=== PATIENT | female | born 1970 | race African-American/Black ===

== ENCOUNTER 2017-12-12 11:00 | Emergency (ER) | payer MEDICAID ==
[~2017-12-12] VITALS: Ht 167.6 cm; Wt 60.0 kg
[2017-12-12 11:02] VITALS: BP 130/94; PULSE 102; RESP 14; TEMP 98.4; O2SAT 98
--- NOTE | 2017-12-12 11:26 | PD ---
HPI Chief Complaint: Pain: Acute or Chronic Time Seen by Provider: 11:25 Travel History International Travel<30 days: No Contact w/Intl Traveler<30days: No Traveled to known affect area: No History of Present Illness HPI 47-year-old Afro[place] female presents the emergency department status post slip and almost fall local grocery store after slipping on a wet floor. Patient did not fall completely to the floor or lose consciousness. She now is here complaining of low back pain and pain behind the right knee. PFSH Past Medical History ?: Not Social History Alcohol Use: Yes Tobacco Use: Yes Substance Use: No Allergies-Medications (Allergen,Severity, Reaction): Coded Allergies: No Known Allergies (Unverified , 12/12/17) Reported Meds & Prescriptions Reported Meds & Active Scripts Active No Active Prescriptions or Reported Medications Review of Systems Except as stated in HPI: all other systems reviewed are Neg General / Constitutional: No: Fever Eyes: No: Visual changes HENT: No: Headaches Cardiovascular: No: Chest Pain or Discomfort Respiratory: No: Shortness of Breath Gastrointestinal: No: Abdominal Pain Genitourinary: No: Dysuria Musculoskeletal: Positive: Myalgias, Arthralgias, Limited ROM, Pain Skin: No Rash Neurologic: No: Weakness Psychiatric: No: Depression Endocrine: No: Polydipsia Hematologic/Lymphatic: No: Easy Bruising Physical Exam Narrative GENERAL: Patient appears in mild to moderate distress. SKIN: Warm and dry. Normal color. Normal turgor. No signs of trauma. HEAD: Atraumatic. Normocephalic. EYES: Pupils equal and round. No scleral icterus. No injection or drainage. ENT: No nasal bleeding or discharge. Mucous membranes pink and moist. NECK: Trachea midline. No JVD. CARDIOVASCULAR: Regular rate and rhythm. RESPIRATORY: No accessory muscle use. Clear to auscultation. Breath sounds equal bilaterally. GASTROINTESTINAL: Abdomen soft, non-tender, nondistended. Hepatic and splenic margins not palpable. MUSCULOSKELETAL: Extremities without clubbing, cyanosis, or edema. No obvious deformities. There is no laxity in the right knee, however the patient complains of pain with palpation to the popliteal space. There is no obvious swelling. Patient has tenderness in the right lower lumbar spine extending into the right sciatic notch. She has fairly raise pain at 40 on the right, without contralateral straight leg raise pain. NEUROLOGICAL: Awake and alert. No obvious cranial nerve deficits. Motor grossly within normal limits. Five out of 5 muscle strength in the arms and legs. Normal speech. PSYCHIATRIC: Appropriate mood and affect; insight and judgment normal. Data Data Last Documented VS Vital Signs Date Time Temp Pulse Resp B/P (MAP) Pulse Ox O2 Delivery O2 Flow Rate FiO2 12/12/17 11:02 98.4 102 14 130/94 (106) 98 Orders Orders Knee, Complete (4vws) (12/12/17 11:29) Spine, Lumbar - Ltd (Ap & Lat) (12/12/17 11:29) Ketorolac Inj (Toradol Inj) (12/12/17 11:30) Prednisone (Deltasone) (12/12/17 11:30) [facility] Medical Decision Making Medical Screen Exam Complete: Yes Emergency Medical Condition: Yes Medical Record Reviewed: Yes Differential Diagnosis Slipped on water. Right knee sprain. Lumbar sprain. Sciatica. Narrative Course Patient is medically stable at time of exam. Patient is given Norflex 60 mg IM. Patient is given 40 mg prednisone by mouth. X-rays of the lumbar spine and right knee is ordered. X-ray of the knee shows no acute process per radiologist. 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 Patient is felt stable for discharge. Patient is placed in a right knee immobilizer for comfort. Patient is continued on ibuprofen 600 mg 3 times a day #30. Patient continued on Flexeril 10 mg up to 3 times a day #15. Patient states Mapap, milligrams 2 tabs every 6 hours when necessary #80. Patient should follow-up with local primary care physician or return to emergency department if symptoms not improve over the next week. Diagnosis Primary Impression: Acute lumbar myofascial strain Qualified Codes: S39.012A - Strain of muscle, fascia and tendon of lower back , initial encounter Additional Impression: Right knee sprain Qualified Codes: S83.91XA - Sprain of unspecified site of right knee, initial encounter Referrals: [facility] Patient Instructions: General Instructions, Knee Immobilizer (ED), Knee Pain ( ED), Low Back Strain (ED), Lower Back Exercises (ED) Additional Instructions: X-ray of the knee shows no acute process per radiologist. 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 Patient is felt stable for discharge. Patient is placed in a right knee immobilizer for comfort. Patient is continued on ibuprofen 600 mg 3 times a day #30. Patient continued on Flexeril 10 mg up to 3 times a day #15. Patient states Mapap, milligrams 2 tabs every 6 hours when necessary #80. Patient should follow-up with local primary care physician or return to emergency department if symptoms not improve over the next week. Med/Other Pt SpecificInfo: Prescription(s) given Scripts No Active Prescriptions or Reported Meds Disposition: 01 DISCHARGE HOME Condition: Stable Shane Quiles Dec 12, 2017 11:26
[2017-12-12] MEDS ORDERED: KETOROLAC TROMETHAMINE 60 MG/2 ML (IM) VIAL IM ONE (11:30)
[2017-12-12] MEDS ORDERED: predniSONE 20 MG TAB PO ONE (11:30)
--- NOTE | 2017-12-12 12:17 | RADRPT ---
EXAM DATE/TIME: 12/12/2017 11:49 [facility] COMPARISON: No previous studies available for comparison. INDICATIONS : Trauma. Fall. MEDICAL HISTORY : None. SURGICAL HISTORY : None. ENCOUNTER: Initial ACUITY: 4 - 6 days PAIN SCORE: 4/10 LOCATION: Right Posterior Knee Joint. FINDINGS: Four view examination of the right knee demonstrates no evidence of fracture or dislocation. Bony mi neralization is normal. The articular surfaces are intact. The suprapatellar soft tissues have a no rmal configuration. CONCLUSION: 1. No acute fracture or dislocation. Dario Goodman MD on December 12, 2017 at 12:15 Board Certified Radiologist. This report was verified electronically.
--- NOTE | 2017-12-12 12:54 | RADRPT ---
EXAM DATE/TIME: 12/12/2017 11:56 [facility] COMPARISON: No previous studies available for comparison. INDICATIONS : Back pain. MEDICAL HISTORY : None. SURGICAL HISTORY : None. ENCOUNTER: Initial ACUITY: 4 - 6 days PAIN SCORE: 10/10 LOCATION: Lumbar spine. FINDINGS: 3 views of the lumbar spine. Vertebral body heights are intact. Sagittal alignment is maintained. No scoliosis. No acute fracture. Disc spaces are preserved. Mild degenerative changes at L5-S1. 5.9 cm c alcified mass in the left pelvis. Soft tissues are otherwise unremarkable. CONCLUSION: 1. No acute fracture or subluxation. 2. Mild degenerative change at L5-S1. 3. 5.9 cm calcified mass in the left pelvis, likely uterine leiomyoma. This can be better characteriz ed with ultrasound examination on an outpatient basis if patient does not have a prior history of [place] fibroids. Dario Goodman MD on December 12, 2017 at 12:50 Board Certified Radiologist. This report was verified electronically.
[2017-12-12] MEDS ORDERED: IBUP-232 PO (13:48)
[2017-12-12] MEDS ORDERED: MAPA500T13 PO (13:48)
[2017-12-12] MEDS ORDERED: CYCL10TA PO (13:48)
== END 2017-12-12 13:57 | disposition home or self-care (01) ==
LOC: NEPD 11:00
DX: S39.012A Strain of muscle, fascia and tendon of lower back, initial encounter (principal); S83.91XA Sprain of unspecified site of right knee, initial encounter; W01.0XXA Fall on same level from slipping, tripping and stumbling without subsequent striking against object, initial encounter; Z72.0 Tobacco use
CPT/HCPCS: 72100; 73564; 96372; 99284; J1885; J7512; L1830